=== PATIENT | female | born 1995 | race Two or more races ===

== ENCOUNTER 2021-09-02 03:47 | Emergency (ER) | payer OTHER ==
[~2021-09-02] VITALS: Ht 162.6 cm; Wt 59.0 kg
[~2021-09-02 03:47] MED LIST: CIPRO500 MG PO; NAPR500T14 PO; PANADOL CHILDRE80 MG; TRAMADOL HCL50 MG; ULTRACET PO
[2021-09-02] MEDS ORDERED: CONCEPT DHA CA1 EACH PO (14:03)
== END 2021-09-02 14:18 | disposition home or self-care (01) ==
LOC: ER 03:47
DX: O26.891 Other specified pregnancy related conditions, first trimester (principal); R33.8 Other retention of urine; R10.2 Pelvic and perineal pain; O26.851 Spotting complicating pregnancy, first trimester; O36.80X1 Pregnancy with inconclusive fetal viability, fetus 1; Z3A.01 Less than 8 weeks gestation of pregnancy

== ENCOUNTER 2022-01-16 00:47 | Outpatient (CLI) | payer OTHER ==
[~2022-01-16 00:47] MED LIST changes: +CONCEPT DHA CA1 EACH PO; +PRENA1 CHEW TA1.4 MG PO
== END 2022-01-17 12:15 | disposition home or self-care (01) ==
LOC: OBS/DEL 00:47
PROVIDERS: ATTEND Specialist
DX: O26.892 Other specified pregnancy related conditions, second trimester (principal); Z3A.23 23 weeks gestation of pregnancy; R31.9 Hematuria, unspecified; O99.891 Other specified diseases and conditions complicating pregnancy; N13.30 Unspecified hydronephrosis; Z91.018 Allergy to other foods

== ENCOUNTER 2022-02-02 10:40 | Outpatient (CLI) | payer OTHER ==
[~2022-02-02] VITALS: Ht 162.6 cm; Wt 68.0 kg
== END 2022-02-02 15:13 | disposition home or self-care (01) ==
LOC: OBS/DEL 10:40
PROVIDERS: ATTEND Specialist
DX: O36.8120 Decreased fetal movements, second trimester, not applicable or unspecified (principal); Z3A.26 26 weeks gestation of pregnancy

== ENCOUNTER 2022-04-22 13:52 | Inpatient (IN) | payer OTHER ==
[~2022-04-22] VITALS: Ht 162.6 cm; Wt 95.3 kg
== END 2022-04-24 15:23 | disposition home or self-care (01) | DRG 807 ==
LOC: OBS/DEL 13:52 → LDR 14:57 → OB/GYN 14:57 → OBS/DEL 14:57 → OB/GYN 04-23 03:09
PROVIDERS: ADMIT Specialist; ATTEND Specialist
PROC: 10E0XZZ Delivery of Products of Conception, External Approach (ICD-10-PCS; principal; 2022-04-22)
PROC: 0KQM0ZZ Repair Perineum Muscle, Open Approach (ICD-10-PCS; 2022-04-22)
PROC: 0W8NXZZ Division of Female Perineum, External Approach (ICD-10-PCS; 2022-04-22)
PROC: 4A1HXCZ Monitoring of Products of Conception, Cardiac Rate, External Approach (ICD-10-PCS; 2022-04-22)
DX: O70.1 Second degree perineal laceration during delivery (principal); Z37.0 Single live birth; Z3A.38 38 weeks gestation of pregnancy; Z20.822 Contact with and (suspected) exposure to COVID-19